=== PATIENT | male | born 1930 | race African-American/Black ===

== ENCOUNTER 2017-12-02 20:52 | Inpatient (IN) ==
[2017-12-03] MEDS ORDERED: FUROSEMIDE 40 MG/4 ML VIAL IV ONE (00:55)
[2017-12-03] MEDS ORDERED: ONDANSETRON 4 MG/2 ML VIAL IV PRN (00:55)
[2017-12-03] MEDS ORDERED: MORPHINE 2 MG/1 ML SYRINGE IV PRN (00:55)
[2017-12-03] MEDS ORDERED: ENOXAPARIN 40 MG/0.4 ML SYRINGE SUBCUT SCH (01:00)
[2017-12-03] MEDS: CIPROFLOXACIN INJ 400 MG in PREMIX 1 EACH IV SCH ×2 (01:56→17:21)
[2017-12-03 02:32] LABS: Basophils % 0.4 % (0.0-0.8); Eosinophils # 0.1 10*3/uL (0.0-0.87); Eosinophils % 1.6 % (0.00-10.9); Hematocrit 36.7 VOL% (42.0-52.0); Hemoglobin 12.6 GM/DL (14.0-18.0); Immature Granulocytes % 0.4 %; Immature Granulocytes Absolute 0.02 #; Lymphocytes # 1.1 10*3/uL (1.4-4.0); Lymphocytes % 22.1 % (21.2-54.2); Mean Corpuscular HGB Conc 34.3 GM/DL (32-36); Mean Corpuscular Hemoglobin 33 PG (27-34); Mean Corpuscular Volume 96.6 FL (87-102); Mean Platelet Volume 10.6 FL (9.6-12.0); Monocytes # 0.5 10*3/uL (0.11-0.8); Monocytes % 10.1 % (1.7-12.7); Neutrophils # 3.2 10*3/uL (1.4-7.4); Neutrophils % 65.4 % (38.7-73.9); Platelet Count 261 T/CUMM (130-400); Red Cell Distribution Width 13.8 % (9.3-17.3); White Blood Count 4.9 T/CUMM (4-12)
[2017-12-03 03:14] LABS: Albumin 3.8 G/DL (3.4-5.0); Bilirubin,Total 0.8 MG/DL (0.2-1.0); Calcium 8.5 MG/DL (8.5-10.1); Magnesium 2.1 MG/DL (1.8-2.4); Osmolality,Calculated 278.7 MOS/KG (273-304); Potassium 3.8 MMOL/L (3.5-5.1); Risk Ratio 2.82; Thyroid Stimulating Hormone 2.2 uIU/ml (0.358-3.74); Total Protein 8.2 G/DL (6.4-8.3)
[2017-12-03 05:01] LABS: RBC,Urine 15101 /HPF (0-4); WBC,Urine 83 /HPF (0-6)
[2017-12-03 05:02] LABS: Apearance,Urine Turbid (Clear); Bilirubin,Urine Negative (Negative); Blood, Urine Large mg/dL (Negative); Glucose,Urine (UA) Negative (Negative); Ketones,Urine Negative (Negative); Nitrite,Urine Negative (Negative); Protein,Urine 100 MG/DL; Urine Color Red (Yellow); Urine Specific Gravity 1.005 (1.001-1.035); Urine Urobilinogen 0.2 EU/DL (0.2-1.0)
[2017-12-03] MEDS ORDERED: FUROSEMIDE 40 MG/4 ML VIAL IV SCH (09:00)
[2017-12-03] MEDS ORDERED: CLOPIDOGREL 75 MG TABLET PO SCH (09:00)
[2017-12-03] MEDS ORDERED: LISINOPRIL 10 MG TABLET PO SCH (09:00)
[2017-12-03] MEDS: CARVEDILOL 6.25 MG TABLET PO SCH ×2 (10:07→23:08)
[2017-12-03] MEDS: POTASSIUM CHLORIDE 20 MEQ TABLET PO SCH (10:07)
[2017-12-03] MEDS: PANTOPRAZOLE 40 MG TABLET PO SCH (10:07)
[2017-12-03] MEDS: DOCUSATE SODIUM 100 MG CAPSULE PO SCH ×2 (10:08→23:08)
[2017-12-03] MEDS ORDERED: hydrALAZINE 20 MG/1 ML VIAL IV PRN (10:56)
[2017-12-03 12:05] LABS: Hematocrit 37.5 VOL% (42.0-52.0); Hemoglobin 12.8 GM/DL (14.0-18.0)
[2017-12-03] MEDS: LISINOPRIL 10 MG TABLET PO SCH (13:49)
[2017-12-03] MEDS: TAMSULOSIN 0.4 MG CAPSULE PO SCH (13:49)
[2017-12-03] MEDS: DUTASTERIDE 0.5 MG CAPSULE PO SCH (13:50)
[2017-12-03] MEDS: FUROSEMIDE 40 MG/4 ML VIAL IV SCH (16:33)
[2017-12-03 18:56] LABS: Hemoglobin 11.9 GM/DL (14.0-18.0)
[2017-12-03] MEDS ORDERED: MELOXICAM 7.5 MG TABLET PO SCH (21:00)
[2017-12-04 06:52] LABS: Basophils % 0.3 % (0.0-0.8); Eosinophils # 0.1 10*3/uL (0.0-0.87); Eosinophils % 1.9 % (0.00-10.9); Hematocrit 33.4 VOL% (42.0-52.0); Hemoglobin 11.6 GM/DL (14.0-18.0); Immature Granulocytes % 0.3 %; Immature Granulocytes Absolute 0.01 #; Lymphocytes # 1.2 10*3/uL (1.4-4.0); Mean Corpuscular HGB Conc 34.7 GM/DL (32-36); Mean Corpuscular Hemoglobin 33 PG (27-34); Mean Corpuscular Volume 95.4 FL (87-102); Monocytes # 0.6 10*3/uL (0.11-0.8); Neutrophils # 1.4 10*3/uL (1.4-7.4); Neutrophils % 42.5 % (38.7-73.9); Platelet Count 235 T/CUMM (130-400); Red Cell Distribution Width 13.8 % (9.3-17.3); White Blood Count 3.2 T/CUMM (4-12)
[2017-12-04 07:21] LABS: Albumin 3.4 G/DL (3.4-5.0); Calcium 8.3 MG/DL (8.5-10.1); Magnesium 2.2 MG/DL (1.8-2.4); Osmolality,Calculated 276.8 MOS/KG (273-304); Potassium 3.8 MMOL/L (3.5-5.1); Total Protein 7.3 G/DL (6.4-8.3)
[2017-12-04 08:24] LABS: Band Neutrophils 1 % (0-10); Hypochromasia 1+; Lymphocytes 44 % (20-55); Platelet Estimate Normal; Segmented Neutrophils 45 % (50-85); Total Cells Counted 100
[2017-12-04] MEDS: DOCUSATE SODIUM 100 MG CAPSULE PO SCH ×2 (08:47→20:35)
[2017-12-04] MEDS: DUTASTERIDE 0.5 MG CAPSULE PO SCH (08:48)
[2017-12-04] MEDS: TAMSULOSIN 0.4 MG CAPSULE PO SCH (08:48)
[2017-12-04] MEDS: LISINOPRIL 10 MG TABLET PO SCH (08:48)
[2017-12-04] MEDS: SPIRONOLACTONE 25 MG TABLET PO SCH (08:49)
[2017-12-04] MEDS: PANTOPRAZOLE 40 MG TABLET PO SCH (08:49)
[2017-12-04] MEDS: CARVEDILOL 6.25 MG TABLET PO SCH ×2 (08:49→20:35)
[2017-12-04] MEDS: POTASSIUM CHLORIDE 20 MEQ TABLET PO SCH (08:49)
[2017-12-04] MEDS: FUROSEMIDE 40 MG/4 ML VIAL IV SCH ×2 (08:53→15:31)
[2017-12-04] MEDS: CIPROFLOXACIN INJ 400 MG in PREMIX 1 EACH IV SCH ×2 (08:56→20:43)
[2017-12-05 06:50] LABS: Basophils % 0.3 % (0.0-0.8); Eosinophils # 0.1 10*3/uL (0.0-0.87); Eosinophils % 3.6 % (0.00-10.9); Hematocrit 34.9 VOL% (42.0-52.0); Hemoglobin 11.9 GM/DL (14.0-18.0); Immature Granulocytes % 0.3 %; Immature Granulocytes Absolute 0.01 #; Lymphocytes # 1.4 10*3/uL (1.4-4.0); Lymphocytes % 44.3 % (21.2-54.2); Mean Corpuscular HGB Conc 34.1 GM/DL (32-36); Mean Corpuscular Hemoglobin 33 PG (27-34); Mean Platelet Volume 10.4 FL (9.6-12.0); Monocytes # 0.5 10*3/uL (0.11-0.8); Neutrophils # 1.1 10*3/uL (1.4-7.4); Neutrophils % 34.5 % (38.7-73.9); Platelet Count 248 T/CUMM (130-400); Red Blood Count 3.56 MC/CUMM (3.8-5.5); Red Cell Distribution Width 13.6 % (9.3-17.3); White Blood Count 3.1 T/CUMM (4-12)
[2017-12-05 07:08] LABS: Albumin 3.5 G/DL (3.4-5.0); Calcium 8.3 MG/DL (8.5-10.1); Osmolality,Calculated 273.2 MOS/KG (273-304)
[2017-12-05 07:39] LABS: Lymphocytes 46 % (20-55); Platelet Estimate Adequate; Segmented Neutrophils 33 % (50-85); Total Cells Counted 100
[2017-12-05 07:40] LABS: Giant Platelets Few; Hypochromasia 1+; Ovalocytes Slight
[2017-12-05] MEDS: CARVEDILOL 6.25 MG TABLET PO SCH (08:42)
[2017-12-05] MEDS: POTASSIUM CHLORIDE 20 MEQ TABLET PO SCH (08:42)
[2017-12-05] MEDS: SPIRONOLACTONE 25 MG TABLET PO SCH (08:42)
[2017-12-05] MEDS: PANTOPRAZOLE 40 MG TABLET PO SCH (08:42)
[2017-12-05] MEDS: TAMSULOSIN 0.4 MG CAPSULE PO SCH (08:42)
[2017-12-05] MEDS: LISINOPRIL 10 MG TABLET PO SCH (08:42)
[2017-12-05] MEDS: DOCUSATE SODIUM 100 MG CAPSULE PO SCH (08:42)
[2017-12-05] MEDS: DUTASTERIDE 0.5 MG CAPSULE PO SCH (08:43)
[2017-12-05] MEDS: CIPROFLOXACIN INJ 400 MG in PREMIX 1 EACH IV SCH (08:46)
[2017-12-05 09:04] VITALS: BP 121/71
== END 2017-12-05 10:35 | disposition home or self-care (01) | DRG 292 ==
LOC: N.2E 22:11 → SUATTDRO 22:11
PROVIDERS: ADMIT Pediatrics; ATTEND Pediatrics